=== PATIENT | male | born 1990 | race American Indian/Alaskan Native ===

== ENCOUNTER 2019-02-28 15:50 | Emergency (ER) | payer SELFPAY ==
[2019-02-28 16:23] VITALS: BP 125/88
--- NOTE | 2019-02-28 16:24 | Event Note ---
ED Screening Note Date of service: 02/28/19 Time: 16:20 ED Screening Note: This is a 28 y.o. M. that presents to the ER with N/V and weakness for a few hours after drinking water. Denies abdominal pain, diarrhea, fever, cough, or chills. This initial assessment/diagnostic orders/clinical plan/treatment(s) is/are subject to change based on patients health status, clinical progression and re- assessment by fellow clinical providers in the ED. Further treatment and workup at subsequent clinical providers discretion. Patient/guardian urged not to elope from the ED as their condition may be serious if not clinically assessed and managed. Initial orders include: Labs
[2019-02-28 16:53] LABS: Basophils % (Auto) 0.4 % (0.0-1.8); Eosinophils % (Auto) 0.1 % (0.0-4.3); Hematocrit 47.4 % (35.5-45.6); Hemoglobin 15.9 gm/dl (11.8-15.2); Lymphocytes # (Auto) 2.3 K/mm3 (1.2-5.4); Lymphocytes % (Auto) 21.4 % (13.4-35.0); Mean Corpuscular HGB Conc 34 % (32-34); Mean Corpuscular Volume 92 fl (84-94); Monocytes # (Auto) 0.4 K/mm3 (0.0-0.8); Platelet Count 315 K/mm3 (140-440); Red Blood Count 5.14 M/mm3 (3.65-5.03); Red Cell Distribution Width 13.9 % (13.2-15.2)
[2019-02-28 17:15] LABS: Albumin 5.3 g/dL (3.9-5); Calcium 9.7 mg/dL (8.4-10.2)
== END 2019-02-28 19:59 | disposition left against medical advice (07) ==
LOC: ED 15:50
DX: E86.0 Dehydration (principal); Z53.21 Procedure and treatment not carried out due to patient leaving prior to being seen by health care provider
CPT/HCPCS: 36415; 80053; 85025

== ENCOUNTER 2020-09-14 20:45 | Emergency (ER) | payer SELFPAY ==
--- NOTE | 2020-09-14 21:36 | Event Note ---
ED Screening Note Date of service: 09/14/20 Time: 21:34 ED Screening Note: 30-year-old male patient with history of major depressive disorder presents emergency department with complaints of suicidal ideations for the last 2 days. Patient was reluctant to share his suicidal plan in triage, but admits that he does have one. Denies homicidal ideations. Admits to drinking alcohol today and using amphetamines today. He also admits to auditory hallucinations. General: Awake, no acute distress. Neck: Supple. Full range of motion intact. Cardiovascular: Normal peripheral perfusion. Pulmonary: No respiratory distress. Patient is speaking normally without use of accessory muscles. Skin: No apparent rashes or lesions. Neurological: No facial asymmetry. Speech is clear. Follows commands. Patient is alert and oriented. Musculoskeletal: Moves all four extremities spontaneously with normal range of motion. Psych: Poor eye contact. Flat affect. Speech is quiet. He is cooperative. I have greeted and performed a focused rapid initial assessment of this patient. A comprehensive ED assessment and evaluation of the patient, analysis of all test results, and completion of the medical decision-making process will be conducted by additional ED providers. This initial assessment/diagnostic orders/clinical plan/treatment(s) is/are subject to change based on patients health status, clinical progression and re-assessment. Further treatment and workup at subsequent clinical provider's discretion. Patient/guardian urged not to elope from the ED as their condition may be serious if not clinically assessed and managed.
[2020-09-14 21:58] LABS: Hematocrit 40.8 % (35.5-45.6); Hemoglobin 13.8 gm/dl (11.8-15.2); Mean Corpuscular HGB Conc 34 % (32-34); Mean Corpuscular Volume 89 fl (84-94); Platelet Count 295 K/mm3 (140-440); Red Blood Count 4.56 M/mm3 (3.65-5.03); Red Cell Distribution Width 14.3 % (13.2-15.2)
[2020-09-14 22:22] LABS: Alanine Aminotransferase 29 units/L (7-56); Albumin 4.5 g/dL (3.9-5); BUN/Creatinine Ratio 16; Blood Urea Nitrogen 16 mg/dL (9-20); Calcium 8.5 mg/dL (8.4-10.2); Hemolysis Index 7
[2020-09-14 23:05] LABS: Total Cells Counted 100
[2020-09-14 23:06] LABS: Anisocytosis RARE
[2020-09-15 00:53] LABS: Amphetamine Screen,Urine PRESUMPTIVE POSITIVE; Benzodiazepines Screen,Urine PRESUMPTIVE NEGATIVE; Cannabinoid Screen,Urine PRESUMPTIVE NEGATIVE; Cocaine Screen,Urine PRESUMPTIVE NEGATIVE; Methadone Screen,Urine PRESUMPTIVE NEGATIVE; Opiate Screen,Urine PRESUMPTIVE NEGATIVE
[2020-09-15 01:36] LABS: Bilirubin,Urine NEG (Negative); Blood,Urine NEG (Negative); Color,Urine Amber (Yellow); Mucus,Urine 3+ /HPF
--- NOTE | 2020-09-15 02:22 | Emergency Department Report ---
<SRAVANTHI JOHNS III Jose - Last Filed: 09/15/20 02:18> ED Psych HPI - General Chief Complaint: Psych Stated Complaint: SUICIDAL IDEATIONS Time Seen by Provider: 09/15/20 02:01 Source: patient Mode of arrival: Ambulatory Limitations: No Limitations - History of Present Illness MD Complaint: suicidal ideation, feels depressed -: Sudden Associated Psychiatric Symptoms: depression, suicidal ideation History of same: Yes Quality: constant Improves With: none Worsens With: none Context: significant life stressor Associated Symptoms: denies: confusion, headache, shortness of breath, nausea, vomiting, syncope, insomnia If Self Harm: admits thoughts of, has plan - Related Data Previous Rx's Medication Instructions Recorded Last Taken Type Gentamicin 0.3% Ophth Soln 2 drops OP Q4H #1 bottle 09/28/14 Unknown Rx Ibuprofen [Motrin] 800 mg PO Q8H PRN #30 tablet 09/28/14 Unknown Rx traMADoL [Ultram] 50 mg PO Q6HR PRN #14 tablet 09/28/14 Unknown Rx Ibuprofen [Motrin 800 MG tab] 800 mg PO Q8HR PRN #30 tablet 04/19/15 Unknown Rx Citalopram [celeXA] 10 mg PO QDAY #30 tablet 09/15/20 Unknown Rx traZODone [Desyrel] 50 mg PO QHS #30 tab 09/15/20 Unknown Rx Allergies Allergy/AdvReac Type Severity Reaction Status Date / Time No Known Allergies Allergy Unverified 04/19/15 16:21 ED Review of Systems Constitutional: denies: chills, fever Eyes: denies: eye pain, eye discharge, vision change ENT: denies: ear pain, throat pain Respiratory: denies: cough, shortness of breath, wheezing Cardiovascular: denies: chest pain, palpitations Endocrine: no symptoms reported Gastrointestinal: denies: abdominal pain, nausea, diarrhea Genitourinary: denies: urgency, dysuria Musculoskeletal: denies: back pain, joint swelling, arthralgia Skin: denies: rash, lesions Neurological: denies: headache, weakness, paresthesias Psychiatric: depression, suicidal thoughts. denies: anxiety Hematological/Lymphatic: denies: easy bleeding, easy bruising ED Past Medical Hx - Past Medical History Previous Medical History?: Yes Hx Hypertension: No Hx CVA: No Hx Heart Attack/AMI: No Hx Congestive Heart Failure: No Hx Diabetes: No Hx Deep Vein Thrombosis: No Hx Pulmonary Embolism: No Hx GERD: No Hx Liver Disease: No Hx Renal Disease: Yes Hx Sickle Cell Disease: No Hx Arthritis: No Hx Headaches / Migraines: No Hx Seizures: No Hx Kidney Stones: No Hx Psychiatric Treatment: Yes (anxiety, depresion) Hx Asthma: No Hx COPD: No Hx Tuberculosis: No Hx Dementia: No Hx HIV: No - Surgical History Past Surgical History?: No Hx Coronary Stent: No Hx Open Heart Surgery: No Hx Pacemaker: No Hx Internal Defibrillator: No Hx Cholecystectomy: No Hx Appendectomy: No Hx Breast Surgery: No - Family History Family history: no significant - Social History Smoking Status: Current Every Day Smoker Substance Use Type: Alcohol, Methamphetamines - Medications Home Medications: Home Medications Medication Instructions Recorded Confirmed Last Taken Type Gentamicin 0.3% Ophth Soln 2 drops OP Q4H #1 bottle 09/28/14 Unknown Rx Ibuprofen [Motrin] 800 mg PO Q8H PRN #30 tablet 09/28/14 Unknown Rx traMADoL [Ultram] 50 mg PO Q6HR PRN #14 tablet 09/28/14 Unknown Rx Ibuprofen [Motrin 800 MG tab] 800 mg PO Q8HR PRN #30 tablet 04/19/15 Unknown Rx Citalopram [celeXA] 10 mg PO QDAY #30 tablet 09/15/20 Unknown Rx traZODone [Desyrel] 50 mg PO QHS #30 tab 09/15/20 Unknown Rx ED Physical Exam - General Limitations: No Limitations General appearance: alert, in no apparent distress - Head Head exam: Present: atraumatic, normocephalic - Eye Eye exam: Present: normal appearance - ENT ENT exam: Present: mucous membranes moist - Neck Neck exam: Present: normal inspection - Respiratory Respiratory exam: Present: normal lung sounds bilaterally. Absent: respiratory distress - Cardiovascular Cardiovascular Exam: Present: regular rate, normal rhythm. Absent: systolic murmur, diastolic murmur, rubs, gallop - GI/Abdominal GI/Abdominal exam: Present: soft, normal bowel sounds - Rectal Rectal exam: Present: deferred - Extremities Exam Extremities exam: Present: normal inspection - Back Exam Back exam: Present: normal inspection - Neurological Exam Neurological exam: Present: alert, oriented X3 - Psychiatric Psychiatric exam: Present: flat affect, suicidal ideation - Skin Skin exam: Present: warm, dry, intact, normal color. Absent: rash ED Course - Reevaluation(s) Reevaluation #1: Patient placed on ER hold. Patient is medically cleared. Patient will remain in the ER as an ER hold until the patient's final disposition comes from our psychiatry team. 09/15/20 02:19 ED Medical Decision Making - Lab Data Result diagrams: 09/14/20 21:48 09/14/20 21:48 - Medical Decision Making Patient is a 30-year-old male who presents emergency room with complaints of suicidal ideation and depression. Patient states his symptoms are worsening. Patient states his plan is to hang himself. Patient had labs done which were essentially unremarkable. Patient was placed on a ER hold. Patient is medically cleared. Patient's final disposition will come from our psychiatry mental health team. Patient remained in the ER until the final disposition comes from the mental health team. - Differential Diagnosis Suicidal ideation, depression ED Disposition Clinical Impression: Suicidal ideations Disposition: DC-01 TO HOME OR SELFCARE Is pt being admited?: No Does the pt Need Aspirin: No Condition: Stable Instructions: Persistent Depressive Disorder, Adult Additional Instructions: Professional and Agency Contacts To help [facility] (22/12) [place] Crisis Line: Suicide Prevention Line: Crisis Text Line: Text START to 142106 Emergency: 911 Outpatient COMMUNITY Behavioral Health Resources: [place]: [facility] [address] [place], [place] [address] [facility] [address] [place] [address] Thursday thru Thursday - 8am - 5pm Call to schedule an assessment for mental health and substance abuse programs [facility] Address: [address] [place] [address] Thursday thru Thursday- 7am-2pm [facility] Address: [address] [place] [address] Thursday thru Thursday: 8:30AM-5PM SUBSTANCE ABUSE PROGRAMS: [facility]: Location: [place], [place] [employer] Address: [address] [place] [address] [facility]: Address: [address] [place] [address] [facility]: Address: [address] [place] [address] [facility]: Address: [address] [place] [address] [facility] Address: [address] [place] [address]. Prescriptions: traZODone [Desyrel] 50 mg PO QHS #30 tab Citalopram [celeXA] 10 mg PO QDAY #30 tablet Referrals: PRIMARY CARE, [Primary Care Provider] - 3-5 Days Time of Disposition: 02:19 <CHITO APPIAH - Last Filed: 09/15/20 13:24> ED Review of Systems ROS: Stated complaint: SUICIDAL IDEATIONS Other details as noted in HPI ED Course Vital Signs 09/14/20 09/15/20 09/15/20 21:29 02:10 02:50 Temperature 98.1 F 97.7 F Pulse Rate 98 H 86 Respiratory 18 16 18 Rate Blood Pressure 122/81 Blood Pressure 117/74 [Right] O2 Sat by Pulse 99 100 99 Oximetry 09/15/20 08:25 Temperature 97.5 F L Pulse Rate 81 Respiratory 20 Rate Blood Pressure 134/79 Blood Pressure [Right] O2 Sat by Pulse 99 Oximetry ED Medical Decision Making - Lab Data Result diagrams: 09/14/20 21:48 09/14/20 21:48 - Medical Decision Making Patient is medically clear and patient has been evaluated by our psychiatric team and advised to discharge patient to follow-up as an outpatient. Patient currently denying any suicidal homicidal ideation. No visual or auditory hallucination. Patient mother is here to berry picker the patient. Patient is medically and psychiatrically stable for discharge. Critical care attestation.: If time is entered above; I have spent that time in minutes in the direct care of this critically ill patient, excluding procedure time.
[2020-09-15 09:10] VITALS: BP 134/79
--- NOTE | 2020-09-15 11:50 | Consultation ---
History of Present Illness - Reason for Consult Consult date: 09/15/20 Reason for consult: MHE Requesting physician: SRAVANTHI JOHNS III - History of Present Psychiatric Illness PSYCH HPI Patient is a 30-year-old, single unemployed and currently homeless - [place] male with past psychiatric history of major depressive disorder, and past medical history of HIV who presented to the ED with chief complaint of feeling depressed and suicidal. Patient reported became homeless about 2 weeks ago after he left his mom's house, patient stated he is depressed today because he is homeless, when asked if patient was ejected from the home. Patient said no, that he just decided to leave because he thought he was a burden on the family. Patient stated reason why he is suicidal today is his homelessness, but major concern for him is a drug use, reported he has been using meth, and also used meth yesterday. Reports losing jobs due to drug use, denies being suicidal today. Patient reports he would like to be referred to a meth rehab program. PAST PSYCHIATRIC HISTORY Diagnoses: MDD Suicide attempts or Self-harm behavior: Yes Prior psychiatric hospitalizations: Yes Substance Abuse history: Meth Previous psychiatric medications tried: Trazodone, Celexa Outpatient treatment: None reported PAST MEDICAL HISTORY: HIV Family Psychiatric History: None reported or documented SOCIAL HISTORY Marital Status: Single Living Arrangements: Homeless Employment Status: Unemployed Access to guns/weapons: None reported Education: GED History of Abuse: None report Legal History: None reported REVIEW OF SYSTEMS Constitutional: Negative for weight loss ENT: Negative for stridor Respiratory: Negative for cough or hemoptysis All other systems reviewed and are negative MENTAL STATUS EXAMINATION General Appearance and Behavior: Age appropriate, good hygiene, wearing appropriate clothes, good eye contact, cooperative polite with questioning. Cooperation: Participating/engaged Psychomotor Behavior: unremarkable and within normal limits Mood: Good Affect and affective range: congruent with mood Thought Process: Fluent/Logical, Thought Content: Within reality, Speech: Normal volume, Regular rate and rhythm, Intellectual Functioning: Average Suicidal Ideation: Denies SI Homicidal Ideation: Denies HI Impulse Control: Unimpaired Insight and Judgment: Normal insight and judgment, Memory: Normal, Attention: Normal, Orientation: Alert, oriented, Diagnoses: Assessment and Plan - Psychiatric problem (1) illicit drug use (2) MDD (major depressive disorder) Current Visit: Yes Status: Acute Treatment Plan We will refill patient's medication. Patient to be referred to outpatient meth rehab program at this point MEDICATIONS: Risks, benefits and alternatives of medications discussed with the patient, questions answered and consent obtained from patient. PSYCHOTHERAPY: Supportive psychotherapy provided MEDICAL: Per primary team DELIRIUM PRECAUTIONS: Please re-orient patient frequently, keep lights on during the day, and minimize benzodiazepines and opiates as these medications could worsen patient's confusion. 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 Case discussed with Dr. Adan who agrees with current disposition LEGAL STATUS: 1013 rescinded FOLLOW-UP: Will sign Thank you for the consult. Please contact with any questions and/or concerns. Medications and Allergies Allergies Allergy/AdvReac Type Severity Reaction Status Date / Time No Known Allergies Allergy Unverified 04/19/15 16:21 Home Medications Medication Instructions Recorded Confirmed Last Taken Type Gentamicin 0.3% Ophth Soln 2 drops OP Q4H #1 bottle 09/28/14 Unknown Rx Ibuprofen [Motrin] 800 mg PO Q8H PRN #30 tablet 09/28/14 Unknown Rx traMADoL [Ultram] 50 mg PO Q6HR PRN #14 tablet 09/28/14 Unknown Rx Ibuprofen [Motrin 800 MG tab] 800 mg PO Q8HR PRN #30 tablet 04/19/15 Unknown Rx Mental Status Exam - Vital signs Last Vital Signs Temp 97.5 F L 09/15/20 08:25 Pulse 81 09/15/20 08:25 Resp 20 09/15/20 08:25 BP 134/79 09/15/20 08:25 Pulse Ox 99 09/15/20 08:25 Results Result Diagrams: 09/14/20 21:48 09/14/20 21:48 Abnormal lab results 09/14/20 09/14/20 09/14/20 Range/Units 21:48 21:48 21:48 Seg Neuts % (Manual) 30.0 L (40.0-70.0) % Lymphocytes % (Manual) 53.0 H (13.4-35.0) % Monocytes % (Manual) 11.0 H (0.0-7.3) % Eosinophils % (Manual) 5.0 H (0.0-4.3) % Total Bilirubin 1.30 H (0.1-1.2) mg/dL Total Protein 8.6 H (6.3-8.2) g/dL Ur Specific Logan (1.003-1.030) Salicylates < 0.3 L (2.8-20.0) mg/dL Acetaminophen (10.0-30.0) ug/mL 09/14/20 09/14/20 Range/Units 21:48 Unknown Seg Neuts % (Manual) (40.0-70.0) % Lymphocytes % (Manual) (13.4-35.0) % Monocytes % (Manual) (0.0-7.3) % Eosinophils % (Manual) (0.0-4.3) % Total Bilirubin (0.1-1.2) mg/dL Total Protein (6.3-8.2) g/dL Ur Specific Logan 1.036 H (1.003-1.030) Salicylates (2.8-20.0) mg/dL Acetaminophen 5.0 L (10.0-30.0) ug/mL All other labs normal.
== END 2020-09-15 13:41 | disposition home or self-care (01) ==
LOC: ED 20:45
DX: R45.851 Suicidal ideations (principal); F41.9 Anxiety disorder, unspecified; F17.200 Nicotine dependence, unspecified, uncomplicated
CPT/HCPCS: 36415; 80053; 80307; 80320; 81001; 84443; 85007; 85025; G0480